=== PATIENT | female | born 1935 | race Caucasian/White ===

== ENCOUNTER 2017-09-22 16:26 | Observation (INO) | payer MEDICARE ==
[~2017-09-22] VITALS: Ht 157.5 cm; Wt 77.5 kg
[2017-09-22 18:24] VITALS: BP 140/63; PULSE 60; RESP 18; TEMP 96.2; O2SAT 95
[2017-09-22 18:32] LABS: AUTOMATED NEUTROPHIL # 3.4 TH/MM3 (1.8-7.7); BASOPHIL # 0.1 TH/MM3 (0-0.2); BASOPHIL % 0.9 % (0.0-2.0); EOSINOPHIL # 0.1 TH/MM3 (0-0.4); EOSINOPHIL % 2.3 % (0.0-4.0); HEMATOCRIT 30.1 % (35.0-46.0); HEMOGLOBIN 9.8 GM/DL (11.6-15.3); LYMPHOCYTE # 2.1 TH/MM3 (1.0-4.8); MEAN CELL VOLUME 88.6 FL (80.0-100.0); MEAN CORPUSCULAR HEMOGLOBIN 28.8 PG (27.0-34.0); MEAN CORPUSCULAR HGB CONC 32.5 % (32.0-36.0); MEAN PLATELET VOLUME 8.2 FL (7.0-11.0); MONOCYTE # 0.6 TH/MM3 (0-0.9); NEUT % 53.8 % (16.0-70.0); PLATELET COUNT 203 TH/MM3 (150-450); RED CELL DISTRIBUTION WIDTH 16.2 % (11.6-17.2); WHITE BLOOD COUNT 6.4 TH/MM3 (4.0-11.0)
[2017-09-22] MEDS ORDERED: ACETAMINOPHEN/HYDROcodone 325 MG/5 MG TAB PO ONE (19:45)
--- NOTE | 2017-09-22 20:40 | RADRPT ---
EXAM DATE/TIME: 09/22/2017 19:46 [facility] COMPARISON: No previous studies available for comparison. INDICATIONS : Rib pain with no known injury MEDICAL HISTORY : None. SURGICAL HISTORY : CABG. Pacemaker. ENCOUNTER: Initial ACUITY: 1 day PAIN SCORE: 10/10 LOCATION: Bilateral ribs FINDINGS: Pacer on the left. Expiratory chest reveals no pneumothorax. Nondisplaced fractures of the right ei ghth and seventh ribs. CONCLUSION: Right rib fractures. No pneumothorax. Limited exam. Radu Villarreal MD FACR on September 22, 2017 at 20:36 Board Certified Radiologist. This report was verified electronically.
--- NOTE | 2017-09-22 20:43 | RADRPT ---
EXAM DATE/TIME: 09/22/2017 19:52 [facility] COMPARISON: No previous studies available for comparison. INDICATIONS : Right forearm pain with no known injury MEDICAL HISTORY : None. SURGICAL HISTORY : None. ENCOUNTER: Initial ACUITY: 1 day PAIN SCORE: 10/10 LOCATION: Right entire forearm FINDINGS: Limited exam because of uncooperative patient. No displaced fracture. CONCLUSION: Very limited exam. Subtle fractures cannot be excluded. Radu Villarreal MD FACR on September 22, 2017 at 20:40 Board Certified Radiologist. This report was verified electronically.
--- NOTE | 2017-09-22 20:44 | RADRPT ---
EXAM DATE/TIME: 09/22/2017 20:00 [facility] COMPARISON: No previous studies available for comparison. INDICATIONS : Altered mental status. RADIATION DOSE: 36.49 CTDIvol (mGy) MEDICAL HISTORY : Non-responsive. SURGICAL HISTORY : Non-responsive. ENCOUNTER: Initial ACUITY: 1 day PAIN SCALE: 0/10 LOCATION: cranial TECHNIQUE: Multiple contiguous axial images were obtained of the head. Using automated exposure control and adj ustment of the mA and/or kV according to patient size, radiation dose was kept as low as reasonably a chievable to obtain optimal diagnostic quality images. DICOM format image data is available electro nically for review and comparison. FINDINGS: CEREBRUM: The ventricles are normal for age. No evidence of midline shift, mass lesion, hemorrhage or acute in farction. No extra-axial fluid collections are seen. POSTERIOR FOSSA: The cerebellum and brainstem are intact. The 4th ventricle is midline. The cerebellopontine angle i s unremarkable. EXTRACRANIAL: The visualized portion of the orbits is intact. SKULL: The calvaria is intact. No evidence of skull fracture. CONCLUSION: Negative for acute process Radu Villarreal MD FACR on September 22, 2017 at 20:41 Board Certified Radiologist. This report was verified electronically.
[2017-09-22 21:43] LABS: ALBUMIN 2.8 GM/DL (3.4-5.0); ALT (GPT) 9 U/L (10-53); AST (GOT) 19 U/L (15-37); BICARBONATE 24.5 MEQ/L (21.0-32.0); BLOOD UREA NITROGEN 13 MG/DL (7-18); CALCIUM 8.7 MG/DL (8.5-10.1); CHLORIDE 106 MEQ/L (98-107); CREATININE 0.82 MG/DL (0.50-1.00); GLOMERULAR FILTRATION RATE 67 ML/MIN (>89); SODIUM (NA) 140 MEQ/L (136-145)
--- NOTE | 2017-09-22 21:47 | RADRPT ---
EXAM DATE/TIME: 09/22/2017 21:22 [facility] COMPARISON: No previous studies available for comparison. INDICATIONS : Fall. Right upper arm pain. MEDICAL HISTORY : None. SURGICAL HISTORY : None. ENCOUNTER: Initial ACUITY: 1 day PAIN SCORE: 8/10 LOCATION: Right upper extremity FINDINGS: Plate with screws is seen bridging the fracture of the humerus. Alignment is anatomic. Skin cristian are evident. CONCLUSION: Plate in good position. Anatomic alignment. Radu Villarreal MD FACR on September 22, 2017 at 21:43 Board Certified Radiologist. This report was verified electronically.
--- NOTE | 2017-09-22 21:47 | RADRPT ---
EXAM DATE/TIME: 09/22/2017 21:24 [facility] COMPARISON: No previous studies available for comparison. INDICATIONS : Fall. Right wrist pain. MEDICAL HISTORY : None. SURGICAL HISTORY : None. ENCOUNTER: Initial ACUITY: 1 day PAIN SCORE: 8/10 LOCATION: Right upper extremity FINDINGS: Degenerative changes about the carpus. Alignment anatomic. Fracture is not appreciated. The family of the first metacarpal is noted. Carpal deformity is evident. CONCLUSION: Osteopenia with degenerative changes, no fracture Radu Villarreal MD FACR on September 22, 2017 at 21:44 Board Certified Radiologist. This report was verified electronically.
[2017-09-22 21:49] LABS: ALKALINE PHOSPHATASE 142 U/L (45-117); TOTAL BILIRUBIN ADULT 0.5 MG/DL (0.2-1.0); TOTAL PROTEIN 7.8 GM/DL (6.4-8.2)
[2017-09-22 21:50] LABS: ACETAMINOPHEN LESS THAN 2.0 MCG/ML (10.0-30.0); GLUCOSE,RANDOM 34 MG/DL (74-106)
[2017-09-22] MEDS ORDERED: DEXTROSE 50% IN WATER 50 ML SYRINGE IV PUSH ONE (22:15)
[2017-09-22] MEDS ORDERED: DEXTROSE 50% IN WATER 50 ML VIAL(D50) IV PUSH ONE (22:45)
--- NOTE | 2017-09-22 22:55 | PD ---
HPI Chief Complaint: Psychiatric Symptoms Time Seen by Provider: 19:19 Travel History International Travel<30 days: No Contact w/Intl Traveler<30days: No Traveled to known affect area: No History of Present Illness HPI 82-year-old female that presents to the ED for evaluation of Howell act. Patient was brought here under a Howell act secondary for apparently contacting the administrator social welfare and telling them that she wanted to kill herself. Per patient she told this as a joke and not really meant to be serious. Before she knew it she had the police in her house and she was Howell acted. She denies depression or suicidal ideation. She denies any history of anxiety. Per patient she does tell me that she has had multiple falls recently and she was seen [place] at some point and had a fall that required apparently surgery to her right arm. Patient is unable to give me much history. She does appear to be somewhat altered. I was able to figure out the patient does speak Hebrew and she is able to speak to me a little better in Hebrew. She states that she has been falling a couple times recently. She cannot really tell me when. She denies any allergies to medication. Per patient she has a history of high blood pressure, diabetes and takes insulin. She has no allergies to medication. She was brought here as a Howell act under police custody. She states that she has right rib pain as well as right arm pain. [facility] Past Medical History Medical History: Unable to Obtain Tetanus Vaccination: Unknown Past Surgical History Surgical History: Unable to Obtain Social History Alcohol Use: No Tobacco Use: No Substance Use: No Allergies-Medications (Allergen,Severity, Reaction): Coded Allergies: No Known Allergies (Unverified , 09/22/17) Review of Systems ROS Limitations: Poor Historian Except as stated in HPI: all other systems reviewed are Neg Physical Exam Exam Limitations: Poor Historian Narrative GENERAL: SKIN: Warm and dry. HEAD: Atraumatic. Normocephalic. EYES: Pupils equal and round. No scleral icterus. No injection or drainage. ENT: No nasal bleeding or discharge. Mucous membranes pink and moist. Tongue is midline. No uvula deviation. NECK: Trachea midline. No JVD. CARDIOVASCULAR: Regular rate and rhythm. No murmurs, S3, S4. RESPIRATORY: No accessory muscle use. Clear to auscultation. Breath sounds equal bilaterally. GASTROINTESTINAL: Abdomen soft, non-tender, nondistended. Hepatic and splenic margins not palpable. MUSCULOSKELETAL: Extremities without clubbing, cyanosis, or edema. No obvious deformities. Full range of motion of the upper and lower extremities bilaterally with exception of the right arm were patient has what appears to be a long-arm splint that appears to be falling off her arm. She does have tenderness to palpation on the right ribs. No other deformities noted. NEUROLOGICAL: Awake and alert. No obvious cranial nerve deficits. Motor grossly within normal limits. Five out of 5 muscle strength in the arms and legs. Normal speech. PSYCHIATRIC: Appropriate mood and affect; insight and judgment normal. Data Data Last Documented VS Vital Signs Date Time Temp Pulse Resp B/P (MAP) Pulse Ox O2 Delivery O2 Flow Rate FiO2 09/22/17 18:24 96.2 60 18 140/63 (88) 95 Nasal Cannula 2.00 Orders Orders Complete Blood Count With Diff (09/22/17 17:44) Comprehensive Metabolic Panel (09/22/17 17:44) Thyroid Stimulating Hormone (09/22/17 17:44) Urinalysis - C+S If Indicated (09/22/17 17:44) Psych Screen (09/22/17 17:44) Drug Screen, Random Urine (09/22/17 17:44) Alcohol (Ethanol) (09/22/17 17:44) Salicylates (Aspirin) (09/22/17 17:44) Tylenol (Acetaminophen) (09/22/17 17:44) Ct Brain W/O Iv Contrast(Rout) (09/22/17 ) Ribs, Bilat(W/Exp Cxr-Min 4vw) (09/22/17 ) Forearm (2vws) (09/22/17 ) Acetamin-Hydrocod 325-5 Mg ([place] 5-325 (09/22/17 19:45) Splint Or Brace Apply/Monitor (09/22/17 20:33) Wrist, Complete ([id number]) (09/22/17 ) Humerus (Min 2vws) (09/22/17 ) Dextrose 50% In Aj (Syr) Inj (D50w (Syr (09/22/17 22:15) Blood Glucose (09/22/17 22:36) Dextrose 50% In Aj (Vial) Inj (D50w (Vi (09/22/17 22:45) ^ Sitter (09/22/17 23:00) Admit Order (Ed Use Only) (09/22/17 23:00) Labs Laboratory Tests Test 09/22/17 18:20 09/22/17 20:58 White Blood Count 6.4 TH/MM3 Red Blood Count 3.40 MIL/MM3 Hemoglobin 9.8 GM/DL Hematocrit 30.1 % Mean Corpuscular Volume 88.6 FL Mean Corpuscular Hemoglobin 28.8 PG Mean Corpuscular Hemoglobin Concent 32.5 % Red Cell Distribution Width 16.2 % Platelet Count 203 TH/MM3 Mean Platelet Volume 8.2 FL Neutrophils (%) (Auto) 53.8 % Lymphocytes (%) (Auto) 33.0 % Monocytes (%) (Auto) 10.0 % Eosinophils (%) (Auto) 2.3 % Basophils (%) (Auto) 0.9 % Neutrophils # (Auto) 3.4 TH/MM3 Lymphocytes # (Auto) 2.1 TH/MM3 Monocytes # (Auto) 0.6 TH/MM3 Eosinophils # (Auto) 0.1 TH/MM3 Basophils # (Auto) 0.1 TH/MM3 CBC Comment DIFF FINAL Differential Comment Salicylates Level LESS THAN 1.7 MG/DL Blood Urea Nitrogen 13 MG/DL Creatinine 0.82 MG/DL Random Glucose 34 MG/DL Total Protein 7.8 GM/DL Albumin 2.8 GM/DL Calcium Level 8.7 MG/DL Alkaline Phosphatase 142 U/L Aspartate Amino Transf (AST/SGOT) 19 U/L Alanine Aminotransferase (ALT/SGPT) 9 U/L Total Bilirubin 0.5 MG/DL Sodium Level 140 MEQ/L Potassium Level 3.8 MEQ/L Chloride Level 106 MEQ/L Carbon Dioxide Level 24.5 MEQ/L Anion Gap 10 MEQ/L Estimat Glomerular Filtration Rate 67 ML/MIN Thyroid Stimulating Hormone 3rd Gen 3.040 uIU/ML Acetaminophen Level LESS THAN 2.0 MCG/ML Ethyl Alcohol Level LESS THAN 3 MG/DL MDM Medical Decision Making Medical Screen Exam Complete: Yes Emergency Medical Condition: Yes Medical Record Reviewed: Yes Interpretation(s) CBC & BMP Diagram 09/22/17 18:20 09/22/17 20:58 Total Protein 7.8, Albumin 2.8 L, Calcium Level 8.7, Alkaline Phosphatase 142 H , Aspartate Amino Transf (AST/SGOT) 19, Alanine Aminotransferase (ALT/SGPT) 9 L , Total Bilirubin 0.5 Last Impressions Wrist X-Ray 09/22/17 0000 Signed Impressions: Service Date/Time: Friday, September 22, 2017 21:24 - CONCLUSION: Osteopenia with degenerative changes, no fracture Radu Villarreal MD FACR Ribs X-Ray 09/22/17 0000 Signed Impressions: Service Date/Time: Friday, September 22, 2017 19:46 - CONCLUSION: Right rib fractures. No pneumothorax. Limited exam. MD ECHO MartinR Radius/Ulna X-Ray 09/22/17 0000 Signed Impressions: Service Date/Time: Friday, September 22, 2017 19:52 - CONCLUSION: Very limited exam. Subtle fractures cannot be excluded. MD ECHO MartinR Humerus X-Ray 09/22/17 Signed Impressions: Service Date/Time: Friday, September 22, 2017 21:22 - CONCLUSION: Plate in good position. Anatomic alignment. Radu Villarreal MD FACR Head CT 09/22/17 Signed Impressions: Service Date/Time: Friday, September 22, 2017 20:00 - CONCLUSION: Negative for acute process Radu Villarreal MD FACR Differential Diagnosis Depression versus suicidal ideation versus anxiety versus adjustment disorder versus mood disorder versus bipolar disorder versus schizophrenia versus paranoid disorder versus psychosis versus substance abuse versus alcohol abuse versus alcohol induced psychosis versus homicidality addition versus cutting versus personality disorder versus hypoglycemia versus fall versus fracture versus inability to take care of self Narrative Course 82-year-old female that presents to the ED for evaluation of a Howell act. Patient was properly examined and was found to have signs and symptoms consistent appears to be a Howell act. Clear of her history as patient appears to be somewhat difficult to get history from. Patient does speak Hebrew but even when she speaks to me in Hebrew she seems to have a little difficulty remembering things. Labs and imaging were ordered. Arm had to be resplinted as it appears to be falling off. Imaging did show what appears to have plates to her left humerus from her fracture. She cannot really tell me how long ago that this happened but this appears to be recent. She does appear to have rubbery pain which appears to be possibly chronic from the fall that caused a fracture. X-rays did show fractures of the ribs here. No sign of other disease. Labs were positive for hypoglycemia. I was able to get more history from her and she does tell me that she takes insulins and has a diabetic. She was given dextrose 50 IV with no improvement of her sugars. Her sugar was rechecked half an hour later was still 36. She was given also juice and food. Another dose of D50 was given. Still not dramatic improvement. This was discussed with my attending Dr. Barnes who recommends admission to medicine as patient cannot be medically cleared until alteration from hypoglycemia is fixed. HEPJAN was paged and Dr Stephens agrees to obs admission. Diagnosis Primary Impression: Hypoglycemia Additional Impressions: Suicidal ideation Humerus fracture Qualified Codes: S42.401D - Unspecified fracture of lower end of right humerus , subsequent encounter for fracture with routine healing Hernesto Mccall Sep 22, 2017 22:55
[2017-09-22] MEDS ORDERED: SODIUM CHLORIDE 0.9% FLUSH 10 ML FLUSH IV FLUSH PRN (23:00)
[2017-09-22] MEDS ORDERED: GLUCAGON 1 MG/ML VIAL OTHER PRN (23:00)
[2017-09-22] MEDS ORDERED: ACETAMINOPHEN 325 MG TAB PO PRN (23:00)
[2017-09-22] MEDS ORDERED: BISACODYL 10 MG SUPP RECTAL PRN (23:00)
[2017-09-22] MEDS ORDERED: LACTULOSE SYRUP 20 GM/30 ML CUP PO PRN (23:00)
[2017-09-22] MEDS ORDERED: MAGNESIUM HYDROXIDE SUSP 30 ML CUP PO PRN (23:00)
[2017-09-22] MEDS ORDERED: DEXT 5%-NACL 0.9% 1000 ML INJ 1,000 ML IV SCH (23:00)
[2017-09-22] MEDS ORDERED: ONDANSETRON HCL 4 MG/2 ML VIAL IVP PRN (23:00)
[2017-09-22] MEDS ORDERED: SENNOSIDES 8.6 MG TAB PO PRN (23:00)
[2017-09-22] MEDS ORDERED: DEXTROSE 50% IN WATER 50 ML VIAL(D50) IV PUSH PRN (23:00)
--- NOTE | 2017-09-22 23:02 | HHI.HP ---
HPI Service [facility] Primary Care Physician Unknown Admission Diagnosis acute hypoglycemia, DM on insulin, suicidal ideation, BA Diagnoses: (1) Hypoglycemia Diagnosis: Principal (2) Humerus fracture Diagnosis: Principal (3) Suicidal ideation Diagnosis: Principal Travel History International Travel<30 Days: No Contact w/Intl Traveler <30 Da: No Traveled to Known Affected Are: No History of Present Illness This is an 82-year-old female with a PMH of DM who is brought to the ER under Howell Act for suicidal ideation. Per report, she had called her therapist to tell her she was having suicidal ideation and Police sent to her home. Pt unable to give much history as lethargic on exam, however able to answer some questions in [place]. Tells me she takes Insulin 68u qam, which she took this morning, in addition to sliding scale Insulin. Denies fever, chills, nausea or vomiting. Per records, pt w/ recent fall for which she was seen in [place], found to have humerus fracture, s/p surgery, currently in splint. While in ER, pt noted to be hypoglycemic w/ BS 34, s/p Randolph Juice and Dextrose, repeat BS 45, later 71. Pt remains lethargic. Review of Systems Except as stated in HPI: all other systems reviewed are Neg ROS: Limited secondary to lethargy Past Family Social History Past Medical History PMH: DM Past Surgical History PAST SURGICAL HISTORY: Unknown Allergies: Coded Allergies: No Known Allergies (Unverified , 09/22/17) Family History PAST FAMILY HISTORY: Reviewed. No h/o DM or CAD Social History PAST SOCIAL HISTORY: Negative for alcohol, tobacco or drugs. Physical Exam Vital Signs Vital Signs Date Time Temp Pulse Resp B/P (MAP) Pulse Ox O2 Delivery O2 Flow Rate FiO2 09/22/17 18:24 96.2 60 18 140/63 (88) 95 Nasal Cannula 2.00 Physical Exam PE: GENERAL: Elderly female in no acute distress, lethargic but rouses and answers few questions. HEENT: PERRLA, EOMI. No scleral icterus or conjunctival pallor. No lid lag or facial droop. CARDIOVASCULAR: Regular rate and rhythm. No obvious murmurs to auscultation. No chest tenderness to palpation. RESPIRATORY: No obvious rhonchi or wheezing. Clear to auscultation. Breath sounds equal bilaterally. GASTROINTESTINAL: Abdomen soft, non-tender, nondistended. BS normal. MUSCULOSKELETAL: Extremities without clubbing, cyanosis, or edema. No obvious deformities. RUE s/p splint in sling. NEUROLOGICAL: Lethargic, answers some questions. No focal neurologic deficits. Moving both upper and lower extremities spontaneously. Laboratory Laboratory Tests Test 09/22/17 18:20 09/22/17 20:58 White Blood Count 6.4 Red Blood Count 3.40 Hemoglobin 9.8 Hematocrit 30.1 Mean Corpuscular Volume 88.6 Mean Corpuscular Hemoglobin 28.8 Mean Corpuscular Hemoglobin Concent 32.5 Red Cell Distribution Width 16.2 Platelet Count 203 Mean Platelet Volume 8.2 Neutrophils (%) (Auto) 53.8 Lymphocytes (%) (Auto) 33.0 Monocytes (%) (Auto) 10.0 Eosinophils (%) (Auto) 2.3 Basophils (%) (Auto) 0.9 Neutrophils # (Auto) 3.4 Lymphocytes # (Auto) 2.1 Monocytes # (Auto) 0.6 Eosinophils # (Auto) 0.1 Basophils # (Auto) 0.1 CBC Comment DIFF FINAL Differential Comment Salicylates Level LESS THAN 1.7 Blood Urea Nitrogen 13 Creatinine 0.82 Random Glucose 34 Total Protein 7.8 Albumin 2.8 Calcium Level 8.7 Alkaline Phosphatase 142 Aspartate Amino Transf (AST/SGOT) 19 Alanine Aminotransferase (ALT/SGPT) 9 Total Bilirubin 0.5 Sodium Level 140 Potassium Level 3.8 Chloride Level 106 Carbon Dioxide Level 24.5 Anion Gap 10 Estimat Glomerular Filtration Rate 67 Thyroid Stimulating Hormone 3rd Gen 3.040 Acetaminophen Level LESS THAN 2.0 Ethyl Alcohol Level LESS THAN 3 Result Diagram: 09/22/17181909/22/172057 Caprini VTE Risk Assessment Caprini VTE Risk Assessment: No/Low Risk (score <= 1) Caprini Risk Assessment Model Point Value = 1 Point Value = 2 Point Value = 3 Point Value = 5 Age 41-60 Minor surgery BMI > 25 kg/m2 Swollen legs Varicose veins or History of unexplained or recurrent spontaneous Oral contraceptives or hormone replacement Sepsis (< 1 month) Serious lung disease, including pneumonia (< 1 month) Abnormal pulmonary function Acute myocardial infarction Congestive heart failure (< 1 month) History of inflammatory bowel disease Medical patient at bed rest Age 61-74 Arthroscopic surgery Major open surgery (> 45 min) Laparoscopic surgery (> 45 min) Malignancy Confined to bed (> 72 hours) Immobilizing plaster cast Central venous access Age >= 75 History of VTE Family history of VTE Factor V Leiden Prothrombin [id number] Lupus anticoagulant Anticardiolipin antibodies Elevated serum homocysteine Heparin-induced thrombocytopenia Other congenital or acquired thrombophilia Stroke (< 1 month) Elective arthroplasty Hip, pelvis, or leg fracture Acute spinal cord injury (< 1 month) Prophylaxis Regimen Total Risk Factor Score Risk Level Prophylaxis Regimen 0-1 Low Early ambulation 2 Moderate Order ONE of the following: *Sequential Compression Device (SCD) *Heparin 5000 units SQ BID 3-4 Higher Order ONE of the following medications: *Heparin 5000 units SQ TID *Enoxaparin/Lovenox 40 mg SQ daily (WT < 150 kg, CrCl > 30 mL/min) *Enoxaparin/Lovenox 30 mg SQ daily (WT < 150 kg, CrCl > 10-29 mL/min) *Enoxaparin/Lovenox 30 mg SQ BID (WT < 150 kg, CrCl > 30 mL/min) AND/OR *Sequential Compression Device (SCD) 5 or more Highest Order ONE of the following medications: *Heparin 5000 units SQ TID (Preferred with Epidurals) *Enoxaparin/Lovenox 40 mg SQ daily (WT < 150 kg, CrCl > 30 mL/min) *Enoxaparin/Lovenox 30 mg SQ daily (WT < 150 kg, CrCl > 10-29 mL/min) *Enoxaparin/Lovenox 30 mg SQ BID (WT < 150 kg, CrCl > 30 mL/min) AND *Sequential Compression Device (SCD) Assessment and Plan Problem List: (1) Hypoglycemia ICD Code: E16.2 - Hypoglycemia, unspecified Status: Acute (2) Humerus fracture ICD Code: S42.309A - Unspecified fracture of shaft of humerus, unspecified arm , initial encounter for closed fracture Status: Acute (3) Suicidal ideation ICD Code: R45.851 - Suicidal ideations Status: Acute Assessment and Plan A/P: 1. Hypoglycemia: BS 34 on arrival, s/p D50 and Randolph juice w/ repeat BS 45 and 71. Reports taking Insulin 68u qam in addition to sliding scale, states took meds this morning. Hold Insulin/Sliding Scale, start [id number] for persistent hypoglycemia, Accu-cheks. Check Hgb A1c. 2. Humerus Fx: s/p recent fall w/ splint in [place], outpatient Ortho follow up as scheduled. Hold analgesics in light of lethargy/sedation. Humerus X-ray w/ plate in good position, images reviewed by me. 3. Suicidal Ideation: currently under Howell Act by Police after pt called therapist and relayed suicidal ideation, apparently later stated it was a joke. Sitter. Consult Psych in am for further assessment once mental status improved. 4. DVT Prophylaxis: SCD/Teds. 5. Social work for d/c planning as needed. 6. Case discussed w/ ER physician at length, labs/records/imaging reviewed by me. Problem Qualifiers (1) Humerus fracture: Qualified Codes: S42.401D - Unspecified fracture of lower end of right humerus , subsequent encounter for fracture with routine healing Madeline Stephens MD Sep 22, 2017 23:02
[2017-09-23 01:01] VITALS: BP 137/62; PULSE 61; RESP 16; TEMP 98.1; O2SAT 92
[2017-09-23 08:35] LABS: ALBUMIN 2.5 GM/DL (3.4-5.0); ALT (GPT) 8 U/L (10-53); AST (GOT) 17 U/L (15-37); BICARBONATE 29.2 MEQ/L (21.0-32.0); BLOOD UREA NITROGEN 12 MG/DL (7-18); CALCIUM 8.7 MG/DL (8.5-10.1); CHLORIDE 104 MEQ/L (98-107); GLOMERULAR FILTRATION RATE 96 ML/MIN (>89); GLUCOSE,RANDOM 110 MG/DL (74-106); SODIUM (NA) 139 MEQ/L (136-145)
[2017-09-23 08:38] LABS: ALKALINE PHOSPHATASE 125 U/L (45-117); TOTAL BILIRUBIN ADULT 0.5 MG/DL (0.2-1.0); TOTAL PROTEIN 6.9 GM/DL (6.4-8.2)
[2017-09-23 08:43] VITALS: BP 198/80; PULSE 68; RESP 20; TEMP 97.9; O2SAT 96
[2017-09-23] MEDS: DOCUSATE SODIUM 50 MG/SENNA 8.6 MG TAB PO SCH ×2 (09:00→17:48)
[2017-09-23] MEDS: SODIUM CHLORIDE 0.9% FLUSH 10 ML FLUSH IV FLUSH SCH ×2 (09:00→21:42)
[2017-09-23 09:40] LABS: AUTOMATED NEUTROPHIL # 5.3 TH/MM3 (1.8-7.7); BASOPHIL % 0.5 % (0.0-2.0); EOSINOPHIL # 0.1 TH/MM3 (0-0.4); EOSINOPHIL % 1.1 % (0.0-4.0); HEMATOCRIT 31.6 % (35.0-46.0); HEMOGLOBIN 10.5 GM/DL (11.6-15.3); LYMPHOCYTE # 1.7 TH/MM3 (1.0-4.8); MEAN CELL VOLUME 87.3 FL (80.0-100.0); MEAN CORPUSCULAR HGB CONC 33.2 % (32.0-36.0); MEAN PLATELET VOLUME 7.9 FL (7.0-11.0); MONO % 8.1 % (0.0-8.0); MONOCYTE # 0.6 TH/MM3 (0-0.9); NEUT % 68.3 % (16.0-70.0); PLATELET COUNT 347 TH/MM3 (150-450); RED BLOOD COUNT 3.62 MIL/MM3 (4.00-5.30); WHITE BLOOD COUNT 7.7 TH/MM3 (4.0-11.0)
[2017-09-23 12:07] VITALS: BP 180/72; PULSE 62; RESP 20; TEMP 98.2; O2SAT 96
[2017-09-23 12:50] LABS: HEMOGLOBIN A1C 6.6 % (4.3-6.0)
[2017-09-23] MEDS ORDERED: ACETAMINOPHEN/HYDROcodone 325 MG/5 MG TAB PO PRN (13:00)
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
[2017-09-23 16:39] VITALS: BP 210/86; PULSE 62; RESP 18; TEMP 98.6; O2SAT 62
[2017-09-23] MEDS ORDERED: LISI-515 PO (16:44)
[2017-09-23] MEDS ORDERED: GABA300C5 PO (16:44)
[2017-09-23] MEDS ORDERED: ROSU1TAB8 PO (16:54)
[2017-09-23] MEDS ORDERED: ASPI-516 CHEW (16:54)
[2017-09-23] MEDS ORDERED: NOVO7030P2 SQ ×2 (16:54)
[2017-09-23] MEDS ORDERED: ESOM0.1C PO (16:54)
[2017-09-23] MEDS ORDERED: DULO1CAP3 PO (16:54)
[2017-09-23] MEDS ORDERED: ISOS10TA3 PO (16:54)
[2017-09-23] MEDS ORDERED: METO50TA PO (16:54)
[2017-09-23] MEDS ORDERED: NEXI20CA PO (16:58)
[2017-09-23] MEDS ORDERED: LORazepam 0.5 MG TAB PO PRN (17:15)
[2017-09-23] MEDS ORDERED: oxyCODONE/ACETAMINOPHEN 5 MG/325 MG TAB PO PRN (17:30)
[2017-09-23] MEDS: ISOSORBIDE MONONITRATE 60 MG CR TAB (IMDUR) PO SCH (17:46)
[2017-09-23] MEDS: ENOXAPARIN SODIUM 40 MG/0.4 ML SYRINGE SQ SCH (17:46)
[2017-09-23] MEDS: GABAPENTIN 300 MG CAP PO SCH (17:47)
[2017-09-23] MEDS: PANTOPRAZOLE SOD 20 MG DELAYED RELEASE TAB PO SCH (17:47)
[2017-09-23] MEDS: oxyCODONE/ACETAMINOPHEN 7.5 MG/325 MG TAB PO PRN ×2 (17:48→21:42)
[2017-09-23] MEDS: LISINOPRIL 20 MG TAB PO SCH (17:48)
[2017-09-23] MEDS: ATORVASTATIN 40 MG TAB PO SCH (17:49)
[2017-09-23] MEDS: METOPROLOL TARTRATE 50 MG TAB PO SCH (17:51)
[2017-09-23 19:56] VITALS: BP 197/78; PULSE 65; RESP 20; TEMP 98.3; O2SAT 96
[2017-09-23] MEDS: cloNIDine HCL 0.1 MG TAB PO PRN (21:42)
[2017-09-23] MEDS: INSULIN ASPART SUPPLEMENTAL SCALE SQ SCH (21:42)
[2017-09-23 23:13] VITALS: BP 125/60; PULSE 60; RESP 16; TEMP 98.8; O2SAT 96
[2017-09-24 00:30] VITALS: PULSE 63
[2017-09-24 02:59] VITALS: BP 146/66; PULSE 60; RESP 16; TEMP 98.7; O2SAT 95
[2017-09-24] MEDS: ISOSORBIDE MONONITRATE 60 MG CR TAB (IMDUR) PO SCH (06:03)
[2017-09-24] MEDS: oxyCODONE/ACETAMINOPHEN 7.5 MG/325 MG TAB PO PRN (06:04)
[2017-09-24] MEDS: INSULIN ASPART SUPPLEMENTAL SCALE SQ SCH ×4 (08:00→21:47)
[2017-09-24 08:20] VITALS: BP 154/68; PULSE 66; RESP 20; TEMP 97.9; O2SAT 98
[2017-09-24] MEDS: SODIUM CHLORIDE 0.9% FLUSH 10 ML FLUSH IV FLUSH SCH ×2 (09:00→21:46)
[2017-09-24] MEDS ORDERED: LISINOPRIL 10 MG TAB PO SCH (09:00)
[2017-09-24] MEDS ORDERED: METOPROLOL TARTRATE 50 MG TAB PO SCH (09:00)
[2017-09-24] MEDS: DULoxetine HCl DR 30 MG CAP PO SCH (09:52)
[2017-09-24] MEDS: METOPROLOL TARTRATE 50 MG TAB PO SCH (09:52)
[2017-09-24] MEDS: DOCUSATE SODIUM 50 MG/SENNA 8.6 MG TAB PO SCH ×2 (09:52→21:46)
[2017-09-24] MEDS: PANTOPRAZOLE SOD 20 MG DELAYED RELEASE TAB PO SCH (09:52)
[2017-09-24] MEDS: ASPIRIN 81 MG CHEW TAB CHEW SCH (09:53)
[2017-09-24] MEDS: LISINOPRIL 20 MG TAB PO SCH (09:53)
[2017-09-24] MEDS: GABAPENTIN 300 MG CAP PO SCH ×3 (09:53→19:20)
[2017-09-24] MEDS: ATORVASTATIN 40 MG TAB PO SCH (09:54)
[2017-09-24 12:29] VITALS: BP 149/73; PULSE 66; RESP 20; TEMP 97.9; O2SAT 96
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
[2017-09-24 16:30] VITALS: BP 180/79; PULSE 60; RESP 18; TEMP 98.2; O2SAT 96
[2017-09-24] MEDS: ENOXAPARIN SODIUM 40 MG/0.4 ML SYRINGE SQ SCH (19:20)
[2017-09-24] MEDS: INSULIN ASPAR PROT 70/30 1,000 UNITS/10 ML VIAL SQ SCH (19:26)
[2017-09-24 19:41] VITALS: BP 187/78; PULSE 61; RESP 16; TEMP 98.7; O2SAT 97
[2017-09-24] MEDS: cloNIDine HCL 0.1 MG TAB PO PRN (21:53)
[2017-09-25] VITALS (7 sets, daily range): BP systolic 155–176; BP diastolic 70–73; PULSE 59–64; RESP 16; TEMP 97.7–98.7; O2SAT 97–99
[2017-09-25] MEDS: ISOSORBIDE MONONITRATE 60 MG CR TAB (IMDUR) PO SCH (06:11)
--- NOTE | 2017-09-25 07:36 | HHI.FF ---
Face to Face Verification Diagnosis: (1) Diabetes mellitus (2) Depression (3) Humerus fracture (4) Hypoglycemia Physical Therapy Order: Evaluate and Treat, Improve ambulation, Strength and gait training Home Health Nursing Order: Medical education Signs/symptoms of disease process Diabetic education Nursing assessment with vital signs I have seen patient Elizabeth Michelle on 09/25/17. My clinical findings support the need for the requested home health care services because: Ltd mobility - disease progression Deconditioned w/ increased weakness Med compliance is questionable Limited ability to care for self I certify that my clinical findings support that this patient is homebound because: Unsteady gait/balance Unsafe to leave home unassisted Unable to use public transportation Desirae Tracy PA-C Sep 25, 2017 7:36 am
[2017-09-25] MEDS ORDERED: NOVO7030P2 SQ ×2 (07:41→08:53)
[2017-09-25] MEDS: INSULIN ASPAR PROT 70/30 1,000 UNITS/10 ML VIAL SQ SCH (08:00)
[2017-09-25] MEDS: INSULIN ASPART SUPPLEMENTAL SCALE SQ SCH ×2 (08:46→13:31)
[2017-09-25] MEDS: METOPROLOL TARTRATE 50 MG TAB PO SCH (08:47)
[2017-09-25] MEDS: ASPIRIN 81 MG CHEW TAB CHEW SCH (08:47)
[2017-09-25] MEDS: GABAPENTIN 300 MG CAP PO SCH ×2 (08:47→13:18)
[2017-09-25] MEDS: DOCUSATE SODIUM 50 MG/SENNA 8.6 MG TAB PO SCH (08:48)
[2017-09-25] MEDS: oxyCODONE/ACETAMINOPHEN 7.5 MG/325 MG TAB PO PRN (08:48)
[2017-09-25] MEDS: LISINOPRIL 20 MG TAB PO SCH (08:48)
[2017-09-25] MEDS: DULoxetine HCl DR 30 MG CAP PO SCH (08:48)
[2017-09-25] MEDS: ATORVASTATIN 40 MG TAB PO SCH (08:48)
[2017-09-25] MEDS: PANTOPRAZOLE SOD 20 MG DELAYED RELEASE TAB PO SCH (08:48)
[2017-09-25] MEDS: SODIUM CHLORIDE 0.9% FLUSH 10 ML FLUSH IV FLUSH SCH (08:48)
--- NOTE | 2017-09-25 09:01 | HHI.DS ---
Discharge Summary Admission Date Sep 22, 2017 at 11:02 pm Discharge Date: Sep 25, 2017 Admitting Diagnosis acute hypoglycemia, DM on insulin, suicidal ideation, BA (1) Hypoglycemia ICD Code: E16.2 - Hypoglycemia, unspecified Status: Acute (2) Humerus fracture ICD Code: S42.309A - Unspecified fracture of shaft of humerus, unspecified arm , initial encounter for closed fracture Status: Acute (3) Suicidal ideation ICD Code: R45.851 - Suicidal ideations Status: Acute Procedures None. Brief History - From Admission This is an 82-year-old female with a PMH of DM who is brought to the ER under Howell Act for suicidal ideation. Per report, she had called her therapist to tell her she was having suicidal ideation and Police sent to her home. Pt unable to give much history as lethargic on exam, however able to answer some questions in [place]. Tells me she takes Insulin 68u qam, which she took this morning, in addition to sliding scale Insulin. Denies fever, chills, nausea or vomiting. Per records, pt w/ recent fall for which she was seen in [place], found to have humerus fracture, s/p surgery, currently in splint. While in ER, pt noted to be hypoglycemic w/ BS 34, s/p [place] Juice and Dextrose, repeat BS 45, later 71. Pt remains lethargic. CBC/BMP: 09/23/17 0659 09/23/17 0659 Significant Findings Laboratory Tests Test 09/22/17 18:20 09/22/17 20:58 09/23/17 06:59 Red Blood Count 3.40 MIL/MM3 (4.00-5.30) 3.62 MIL/MM3 (4.00-5.30) Hemoglobin 9.8 GM/DL (11.6-15.3) 10.5 GM/DL (11.6-15.3) Hematocrit 30.1 % (35.0-46.0) 31.6 % (35.0-46.0) Monocytes (%) (Auto) 10.0 % (0.0-8.0) 8.1 % (0.0-8.0) Salicylates Level LESS THAN 1.7 MG/DL Random Glucose 34 MG/DL (74-106) 110 MG/DL (74-106) Albumin 2.8 GM/DL (3.4-5.0) 2.5 GM/DL (3.4-5.0) Alkaline Phosphatase 142 U/L (45-117) 125 U/L (45-117) Alanine Aminotransferase (ALT/SGPT) 9 U/L (10-53) 8 U/L (10-53) Estimat Glomerular Filtration Rate 67 ML/MIN (>89) Acetaminophen Level LESS THAN 2.0 MCG/ML Hemoglobin A1c 6.6 % (4.3-6.0) Imaging Last Impressions Wrist X-Ray 09/22/17 0000 Signed Impressions: Service Date/Time: Friday, September 22, 2017 21:24 - CONCLUSION: Osteopenia with degenerative changes, no fracture Radu Villarreal MD FACR Ribs X-Ray 09/22/17 Signed Impressions: Service Date/Time: Friday, September 22, 2017 19:46 - CONCLUSION: Right rib fractures. No pneumothorax. Limited exam. Radu Villarreal MD FACR Radius/Ulna X-Ray 09/22/17 Signed Impressions: Service Date/Time: Friday, September 22, 2017 19:52 - CONCLUSION: Very limited exam. Subtle fractures cannot be excluded. Radu Villarreal MD FACR Humerus X-Ray 09/22/17 Signed Impressions: Service Date/Time: Friday, September 22, 2017 21:22 - CONCLUSION: Plate in good position. Anatomic alignment. Radu Villarreal MD FACR Head CT 09/22/17 Signed Impressions: Service Date/Time: Friday, September 22, 2017 20:00 - CONCLUSION: Negative for acute process Radu Villarreal MD FACR PE at Discharge GENERAL: Well-nourished, well-developed elderly female patient in [facility]. SKIN: Warm and dry. No rash. HEENT: Normocephalic. Atraumatic.Pupils equal and round. Mucous membranes pink and moist. NECK: Supple. Trachea midline. CARDIOVASCULAR: Regular rate and rhythm. S1, S2 noted. No murmur appreciated. AICD left chest. RESPIRATORY: No accessory muscle use. Clear to auscultation. Breath sounds equal bilaterally. GASTROINTESTINAL: Abdomen soft, non-tender, nondistended. Normoactive bowel sounds x4. MUSCULOSKELETAL: Extremities without clubbing, cyanosis, or edema. RUE in splint /PARUL wrap with sling. 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 NEUROLOGICAL: Awake and alert. No obvious cranial nerve deficits. Motor grossly within normal limits. Normal speech. PSYCHIATRIC: Slightly anxious; insight and judgment normal. Pt update on day of discharge Follow up for hypoglycemia. The patient reports feeling well today and wants to go home. Blood sugars stable. Denies any headache, lightheadedness, dizziness, chest pain, shortness breath, or abdominal complaints. She admits to feeling slightly anxious but she believes this is due to not receiving her Xanax while in the hospital. She states she takes her Xanax 2-3x daily at home. Discussed changes to her 70/30 insulin dosing, patient verbalized understanding. She has no new medical complaints at this time. Hospital Course 82-year-old female with a PMH of DM who is brought to the ER under Howell Act for suicidal ideation. Patient found to be lethargic. DM 2, with hypoglycemia: Patient has been taking 70/30 insulin 68 units in a.m. and 35 units in p.m. initial blood glucose on ED arrival was 34. s/p D50 and [place] juice w/ repeat BS 45 and 71. She received D5 NS overnight 09/22-09/23. BG improving, discontinued fluids. HgbA1c 6.6. Monitor accu-checks and cover with SSI. BG started to increase to 180s, therefore started on 70/30 10u bid. BG in the low 100s, therefore decreased to 70/30 5u bid at discharge. Diabetic education ordered and will be completed prior to discharge. BG stable. Instructed patient to keep BG log and follow up with PCP for dosing adjustments. Suicidal ideation: Denies any suicidal ideation on exam. Psychiatry consulted, Lifted Howell act. Humerus fracture S/p recent fall w/ splint in [place], outpatient Ortho follow up as scheduled. Humerus X-ray w/ plate in good position. Patient has been taking oxycodone from home, continued oxycodone. Anxiety: Patient is on alprazolam 0.5 at home, advised on caution with this medication. Outpatient f/up. HTN, CAD, Hx CABG: PPM/ AICD in place. Continued home meds. Stable. Pt Condition on Discharge: Stable Discharge Disposition: Disch w/ Home Health Serv Discharge Time: > 30 minutes Discharge Instructions DIET: Follow Instructions for: Diabetic Diet Activities you can perform: Regular-No Restrictions Follow up Referrals: Orthopedics - 1 Week Pain Management PCP Follow-up - 2-3 Days New Medications: Insulin Human Isophane-Regular 70-30 Inj (Novolin 70-30 Inj) 1,000 Unit/10 Ml Vial 5 UNITS SQ BID for Blood Sugar Management for 30 Days, #60 INJECTION 0 Refills Continued Medications: Alprazolam (Alprazolam) 0.5 Mg Tab 0.5 MG PO Q8H PRN for ANXIETY for 7 Days, #21 TAB 0 Refills Aspirin (Aspirin) 81 Mg Chew 81 MG CHEW DAILY, TAB [address] (Duloxetine DR) 60 Mg Capdr 90 MG PO DAILY, #30 CAP [address] (Esomeprazole DR) 20 Mg Capdr 20 MG PO DAILY, #30 CAP 0 Refills Gabapentin (Gabapentin) 300 Mg Cap 300 MG PO TID, #90 CAP 0 Refills Isosorbide Mononitrate (Isosorbide Mononitrate) 10 Mg Tab 60 MG PO DAILY for Prevent Chest Pain, #60 TAB Take 2 doses 7 hours apart. Lisinopril (Lisinopril) 20 Mg Tab 20 MG PO DAILY, #30 TAB 0 Refills Metoprolol Tartrate (Metoprolol Tartrate) 50 Mg Tab 50 MG PO DAILY, #30 TAB 0 Refills Oxycodone-Acetaminophen (Percocet) 10-325 mg Tab 1 TAB PO Q6H PRN for PAIN for 7 Days, #28 TAB 0 Refills Rosuvastatin (Rosuvastatin) 20 Mg Tab 20 MG PO DAILY for Cholesterol Management, #30 TAB 0 Refills Discontinued Medications: Esomeprazole DR (Nexium) 20 Mg Capdr 20 MG PO DAILY, CAP 0 Refills Insulin Human Isophane-Regular 70-30 Inj (Novolin 70-30 Inj) 1,000 Unit/10 Ml Vial 65 UNITS SQ q am for Blood Sugar Management, ML 0 Refills Insulin Human Isophane-Regular 70-30 Inj (Novolin 70-30 Inj) 1,000 Unit/10 Ml Vial 35 UNITS SQ q pm for Blood Sugar Management, ML 0 Refills Desirae Tracy PA-C Sep 25, 2017 9:01 am
[2017-09-25] MEDS ORDERED: ALPRAZolam 0.5 MG TAB PO ONE (11:00)
[2017-09-25] MEDS ORDERED: PERC10TA27 PO (11:01)
[2017-09-25] MEDS ORDERED: ALPR0.5T3 PO (11:01)
== END 2017-09-25 15:44 | disposition home or self-care (01) ==
LOC: NEDAMB 16:26 → NEDA 23:02 → NEPHCDU 09-23 00:28
PROVIDERS: ADMIT Hospitalist; ATTEND Hospitalist
DX: E11.649 Type 2 diabetes mellitus with hypoglycemia without coma (principal); S42.401D Unspecified fracture of lower end of right humerus, subsequent encounter for fracture with routine healing; F41.9 Anxiety disorder, unspecified; R45.851 Suicidal ideations; W19.XXXA Unspecified fall, initial encounter; Z79.4 Long term (current) use of insulin; R29.6 Repeated falls; M79.601 Pain in right arm; R07.89 Other chest pain; G89.29 Other chronic pain; M54.9 Dorsalgia, unspecified; I25.10 Atherosclerotic heart disease of native coronary artery without angina pectoris; Z95.1 Presence of aortocoronary bypass graft; I10 Essential (primary) hypertension; Z95.810 Presence of automatic (implantable) cardiac defibrillator
CPT/HCPCS: 29105; 70450; 71111; 73060; 73090; 73110; 76937; 80053; 80307; 82948; 83036; 84443; 85025; 96361; 96372; 96374; 96375; 97116; 97163; 97166; 99285; G0378; G8987; G8988; J1650; J1815; J7042